=== PATIENT | male | born 1945 | race Caucasian/White ===

== ENCOUNTER 2016-10-03 07:28 | Day surgery (SDC) | payer MEDICARE, OTHER ==
--- NOTE | 2016-09-27 13:23 | HISTORY AND PHYSICAL E ---
History and Physical NAME: ANIYAH PEMBERTON : 1945 AGE: 71Y ADMITTED: 10/03/2016 ROOM: CHIEF COMPLAINT: Colon screening, history of polyps. HISTORY OF PRESENT ILLNESS: The patient is known to me since 2002. Colonoscopy in 2002 shows as follows: Patient did have colonoscopy 2002 showing sigmoid diverticulosis. The patient did have hyperplastic polyps cecum and rectum. The patient did have another colonoscopy done 2014, and the patient did have dysphagia. Upper scope was done showing gastritis, esophagitis, duodenitis. The patient did have another colonoscopy 2004, it showed diverticulosis. He did have history of adenoma polyp mid-transverse colon. PAST SURGICAL HISTORY: 1. He did have a surgery of a testicle mass. 2. History of polyps. MEDICATIONS: The patient takes: 1. Janumet. 2. Fish oil. 3. Lisinopril. 4. Lipitor. 5. Lantus insulin. REVIEW OF SYSTEMS: CARDIAC: Hypertension. ENDOCRINE: Diabetes. GASTROINTESTINAL: Bloating, diverticulosis, history of polyps. ONCOLOGY/HEMATOLOGY: Negative. FAMILY HISTORY: Father old age. Mom secondary to cardiac/lung disease. PHYSICAL EXAMINATION: GENERAL: Pleasant, alert, oriented, no acute distress. VITAL SIGNS: Blood pressure 110/60. Pulse 80. Respirations 20. Temperature is 98. HEAD, EYES, EARS, NOSE, THROAT: Normal. NECK: Supple. LUNGS: Clear. ABDOMEN: Soft. NEUROLOGIC: Negative. CONCLUSION: 1. Diabetes. 2. History of colorectal polyps. 3. Diverticulosis. 4. Colon exam. PLAN: Colonoscopy. DICTATING PHYSICIAN: ANJANA YAÑEZ M.D. [id number] Y#: [id number] ID: [id number] JOB#: [id number] ACCT: [id number] cc:[facility] ANJANA YAÑEZ M.D. >
--- NOTE | 2016-09-27 14:09 | HISTORY AND PHYSICAL E ---
History and Physical NAME: ANIYAH PEMBERTON : 1945 AGE: 71Y ADMITTED: 10/03/2016 ROOM: CHIEF COMPLAINT: Patient has a history of polyps, presented at this time regarding colonoscopy. PAST SURGICAL HISTORY: Patient did have surgery for testicular mass and colon polyps. MEDICATIONS: 1. Janumet. 2. Lipitor. 3. Insulin. SOCIAL HISTORY: Does not smoke and does not drink. FAMILY HISTORY: Father of old age. Mom has cardiac disease, lung disease. REVIEW OF SYSTEMS: CARDIAC: Hypertension. GASTROINTESTINAL: Reflux. Colon polyps. PHYSICAL EXAMINATION: VITAL SIGNS: Blood pressure is 110/60, pulse 80, respirations 20, and temp is 98. HEENT: Normal. NECK: Supple. LUNGS: Clear. ABDOMEN: Soft. NEUROLOGIC: Negative. DIAGNOSTICS: Colonoscopy in 2014 is showing diverticulosis and colorectal polyps. Normal ultrasound of right upper quadrant. CONCLUSIONS: 1. Colorectal polyps. 2. Diverticulosis. PLAN: Colonoscopy, admit 10/03. DICTATING PHYSICIAN: ANJANA YAÑEZ M.D. [id number] [id number] PHY#: [id number] ID: [id number] JOB#: [id number] ACCT: [id number] cc:[facility] ANJANA JEFFERSON M.D. >
[~2016-10-03 07:28] MED LIST: EPINEPHRINE INJ 1 MG/10 ML DISP.SYRIN ONE; FENTANYL CITRATE INJ/PF 100 MCG/2 ML AMPUL ONE; FLUMAZENIL INJ 0.5 MG/5 ML VIAL IV ONE; GLUCAGON,HUMAN RECOMB 1 MG INJ ONE; GLYCOPYRROLATE INJ 0.4 MG/2 ML VIAL ONE; LIDOCAINE 2% JELLY 30 ML TUBE ONE; NALOXONE HCL INJ/PF 0.4 MG/1 ML SDV ONE; ONDANSETRON HCL INJ/PF 4 MG/2 ML SDV ONE; PROMETHAZINE HCL INJ 25 MG/1 ML VIAL ONE
[2016-10-03] MEDS: MIDAZOLAM 2 MG/2 ML INJ ONE ×2 (08:10→08:15)
[2016-10-03 09:24] VITALS: BP 129/68
[2016-10-03 09:57] LABS: ABSOLUTE EOSINOPHILS # (AUTO) 0.1 10^3/uL (0.0-0.6); ABSOLUTE LYMPHOCYTES (AUTO) 1.1 10^3/uL (0.5-4.7); ABSOLUTE MONOCYTES (AUTO) 0.3 10^3/uL (0.1-1.4); ABSOLUTE NEUT (AUTO) 5.4 10^3/uL (1.7-8.2); BASOPHILS % (AUTO) 0.6 % (0-2); EOSINOPHILS % (AUTO) 1.9 % (0-6); HEMATOCRIT 38.5 % (37.9-51.0); HEMOGLOBIN 13.6 g/dL (13.5-17.0); HGB HCT DIFFERENCE 2.3; LYMPHOCYTES % (AUTO) 15.6 % (13-45); MEAN CORPUSCULAR HEMOGLOBIN 30.6 pg (27.0-33.4); MEAN CORPUSCULAR HGB CONC 35.3 g/dL (32.0-36.0); MEAN CORPUSCULAR VOLUME 87 fl (80-97); MONOCYTES % (AUTO) 4.9 % (3-13); RED BLOOD COUNT 4.43 10^6/uL (4.35-5.55); RED CELL DISTRIBUTION WIDTH 14.3 % (11.5-14.0)
--- NOTE | 2016-10-03 12:11 | OPERATIVE REPORT E ---
Operative Report NAME: ANIYAH PEMBERTON : 1945 AGE: 71Y DATE OF SURGERY: 10/03/2016 ROOM: PREOPERATIVE DIAGNOSES: 1. COLON SCREENING. 2. HISTORY OF POLYPS. POSTOPERATIVE DIAGNOSES: 1. DIMINUTIVE POLYP, RECTUM (2 MM) 2. SIGMOID DESCENDING COLON DIVERTICULOSIS (MODERATE TO SEVERE; MODERATE AMOUNT OF STOOL. 3. SESSILE TRANSVERSE COLON POLYP, 4 MM. BIOPSY OBTAINED. 4. MID-ASCENDING COLON LIPOMA. BIOPSY OBTAINED. 5. CECUM NORMAL. SURGEON: ANJANA YAÑEZ M.D. DESCRIPTION: RECTAL EXAM: Retroflex shows 1 mm polyps, small to biopsy, benign. SIGMOID DESCENDING COLON: Diverticulosis. TRANSVERSE COLON: Shows Marixa ink marking, and adjacent to it there was a 3 mm sessile polyp; biopsy obtained. ASCENDING COLON: Normal. CECUM: Normal. Scope withdrawn cecum, ascending, transverse, descending, sigmoid, all the way to the rectum. CONCLUSION: 1. COLORECTAL POLYPS. 2. INADEQUATE PREP. PLAN: 1. Awaiting biopsy results. 2. Hold aspirin and nonsteroidal 5 days. 3. Soft, low-residual diet for 5 days. 4. Baseline CEA, CBC. 5. Consideration of follow-up colonoscopy 1 year. 6. Awaiting histopathology. DICTATING PHYSICIAN: ANJANA YAÑEZ M.D. [id number] PHY#: [id number] ID: [id number] JOB#: [id number] ACCT: [id number] cc:[facility] ANJANA YAÑEZ M.D. >
--- NOTE | 2016-10-03 12:18 | DISCHARGE SUMMARY E ---
Discharge Summary NAME: ANIYAH PEMBERTON : 1945 AGE: 71Y ADMITTED: 10/03/2016 DISCHARGED: 10/03/2016 FINAL DIAGNOSIS: Colorectal polyps. HISTORY: A 71-year-old male underwent colonoscopy. Has adenoma-looking polyp mid transverse colon, sessile, 3 mm size; sigmoid descending colon diverticulosis; lipoma, cecum. PROCEDURES: 1. Colonoscopy. 2. Biopsy. DISCHARGE PLAN: 1. Soft diet. 2. Hold aspirin and nonsteroidal. 3. Baseline CBC and CEA. 4. Awaiting biopsy results. 5. Consider followup colonoscopy in 1 year with better prep. DICTATING PHYSICIAN: ANJANA YAÑEZ M.D. [id number] PHY#: [id number] ID: [id number] JOB#: [id number] ACCT: [id number] cc:[facility] ANJANA YAÑEZ M.D. >
== END 2016-10-03 09:50 | disposition home or self-care (01) ==
LOC: END 07:28
PROVIDERS: ATTEND Specialist
PROC: 0DBL8ZX Excision of Transverse Colon, Via Natural or Artificial Opening Endoscopic, Diagnostic (ICD-10-PCS; 2016-10-03)
PROC: 0DBK8ZX Excision of Ascending Colon, Via Natural or Artificial Opening Endoscopic, Diagnostic (ICD-10-PCS; principal; 2016-10-03 08:00)
DX: Z12.11 Encounter for screening for malignant neoplasm of colon (principal); D12.3 Benign neoplasm of transverse colon; D12.2 Benign neoplasm of ascending colon; K62.1 Rectal polyp; K57.30 Diverticulosis of large intestine without perforation or abscess without bleeding; R97.0 Elevated carcinoembryonic antigen [CEA]; I10 Essential (primary) hypertension; E11.9 Type 2 diabetes mellitus without complications; K21.9 Gastro-esophageal reflux disease without esophagitis; Z79.4 Long term (current) use of insulin; Z79.899 Other long term (current) drug therapy; Z79.84 Long term (current) use of oral hypoglycemic drugs
CPT/HCPCS: 45380; 36415; 82962; 82378; 85025; 88305 ×2; J2250; J3010; J1610; J0171; J2310; J2405; J2550; J3490